=== PATIENT | male | born 1975 | race Two or more races ===

== ENCOUNTER 2022-06-01 19:02 | Emergency (ER) | payer OTHER ==
[~2022-06-01] VITALS: Ht 188 cm; Wt 102.5 kg
[2022-06-01 20:02] VITALS: BP 128/81
[2022-06-01] MEDS ORDERED: IBUPROFEN 800 MG TAB PO ONE (21:15)
== END 2022-06-01 21:34 | disposition home or self-care (01) ==
LOC: ER 19:02
DX: S93.402A Sprain of unspecified ligament of left ankle, initial encounter (principal); X50.1XXA Overexertion from prolonged static or awkward postures, initial encounter; Y93.89 Activity, other specified; Y92.89 Other specified places as the place of occurrence of the external cause; Y99.8 Other external cause status
CPT/HCPCS: 73590; 73610